=== PATIENT | female | born 1990 | race Caucasian/White ===

== ENCOUNTER 2020-09-29 14:26 | Inpatient (IN) ==
[2020-10-11] MEDS ORDERED: BETADINE SOLN ONE ×2 (06:38→16:08)
[2020-10-11] MEDS ORDERED: D5 1/2 NS 1000 ML 1,000 ML IV ONE (06:38)
[2020-10-11] MEDS ORDERED: PITOCIN ONE (06:38)
[2020-10-11] MEDS ORDERED: D5 1/2 NS 1L W PITOCIN 20 UNITS/L 20 UNITS/1,000 ML BAG IV ONE ×2 (06:39→07:11)
[2020-10-11] MEDS ORDERED: D5LR 1L W PITOCIN 10 UNITS/L 10 UNITS/1,000 ML BAG IV ONE ×2 (06:39→07:11)
--- NOTE | 2020-10-11 07:07 | DR.OB ---
OB Quick Note - Assessment/Plan Assessment/Plan: L&D 10/11/20 at 7:00am S-No complaint. O-Afebrile,VSS NVO=[id number] with good LTV, +accel, no decel CTX=q 2-3 min., mild by palpation CVX=2cm/50%/-1/VTX AROM with clear fluid. IUPC and FSE placed. A-IUP at 40 4/7 weeks for induction P-Begin pitocin induction Anticipate
[2020-10-11] MEDS ORDERED: D5LR 1L W PITOCIN 10 UNITS/L 10 UNITS/1,000 ML BAG IV PRN (07:39)
[2020-10-11] MEDS ORDERED: D5 1/2 NS 1000 ML 1,000 ML IV SCH (07:39)
[2020-10-11] MEDS ORDERED: PITOCIN IVP ONE (07:39)
[2020-10-11] MEDS ORDERED: NUBAIN INJ 200 MG VIAL MULTIDOSE IVP PRN (07:39)
[2020-10-11] MEDS ORDERED: REGLAN INJ 10 MG VIAL IVP PRN (07:39)
[2020-10-11] MEDS ORDERED: MORPHINE SULFATE INJ 2 MG INJ IVP PRN (07:39)
[2020-10-11] MEDS ORDERED: PHENERGAN INJ 25 MG IM PRN ×2 (07:39→13:35)
[2020-10-11] MEDS ORDERED: STADOL INJ IVP PRN (07:43)
[2020-10-11] MEDS ORDERED: STADOL INJ ONE (09:35)
[2020-10-11] MEDS ORDERED: FENTANYL INJ 100 mcg ONE ×2 (09:43→09:44)
[2020-10-11] MEDS ORDERED: NAROPIN EPIDURAL 0.2% 100 ML ONE (09:44)
[2020-10-11] MEDS ORDERED: LR 1000 ML IV 1,000 ML IV ONE (09:44)
--- NOTE | 2020-10-11 12:02 | DR.OB ---
OB Quick Note - Assessment/Plan Assessment/Plan: L&D 10/11/20 at 11:55am Pitocin=6mu/min. S-No complaint. s/p epidural. O-Afebrile,VSS ILP=621 with good LTV, +accel, no decel. CTX=q 1 1/2 to 2 min., about 55-65mmHg CVX=8cm/100%/0 A-IUP at 40 4/7 weeks for induction P-Cont. pitocin induction Anticipate
--- NOTE | 2020-10-11 13:35 | DR.OB ---
OB Quick Note - Assessment/Plan Assessment/Plan: Delivery Note [employer] 10/11/20 at 1:16pm Patient complete and pushing. Head delivered over intact perineum. No nuchal cord. Nose and mouth bulb suctioned. Body delivered over intact perineum. Cord clamped x 2 and cut. handed to attendant. Cord sent for gases. Late meconium noted. Placenta delivered spontaneously / intact / 3 vessel cord. No CVX tears noted. A small midline second degree tear noted and repaired with 0-vicryl in usual fashion. Viable female infant, VTX/OA, wt=8'10" and 9/9, stable to NBN. Mother stable to RR. BLH=[id number].
[2020-10-11] MEDS: D5 1/2 NS 1000 ML 1,000 ML with PITOCIN 20 UNITS IV SCH ×4 (14:26→23:00)
[2020-10-11] MEDS ORDERED: ADACEL or BOOSTRIX TDaP VACCINE IM ONE (14:39)
[2020-10-11] MEDS ORDERED: AMBIEN PO PRN (14:39)
[2020-10-11] MEDS ORDERED: DERMOPLAST PAIN RELIEF SPRAY TOP PRN (14:39)
[2020-10-11] MEDS ORDERED: MILK OF MAGNESIA PO PRN (14:39)
[2020-10-11] MEDS: MOTRIN TAB 800 MG PO PRN ×2 (15:56→23:58)
[2020-10-11] MEDS ORDERED: BETADINE SOLN TOP ONE (16:06)
[2020-10-12 05:56] LABS: HEMATOCRIT 31.6 % (36.0-47.0); HEMOGLOBIN 10.7 g/dL (12.0-16.0)
[2020-10-12] MEDS: D5 1/2 NS 1000 ML 1,000 ML with PITOCIN 20 UNITS IV SCH ×2 (07:18)
[2020-10-12] MEDS: PRENATAL PLUS PO SCH (08:29)
[2020-10-12] MEDS: MOTRIN TAB 800 MG PO PRN (18:10)
[2020-10-13 08:15] VITALS: BP 127/80
[2020-10-13] MEDS: PRENATAL PLUS PO SCH (08:30)
[2020-10-13] MEDS ORDERED: ADACEL or BOOSTRIX TDaP VACCINE IM ONE (10:00)
== END 2020-10-13 11:55 | disposition home or self-care (01) | DRG 807 ==
LOC: LD 10-11 06:24 → MED/SURG 10-11 15:21
PROVIDERS: ADMIT Specialist; ATTEND Specialist
DX: Z3A.40 40 weeks gestation of pregnancy; O70.1 Second degree perineal laceration during delivery; O26.893 Other specified pregnancy related conditions, third trimester; Z23 Encounter for immunization; Z37.0 Single live birth

== ENCOUNTER 2022-11-03 02:17 | Inpatient (IN) ==
[2022-11-03 02:49] VITALS: BMI 32.8
[2022-11-03 02:53] LABS: AMNISURE ROM TEST THERE IS A RUPTURE (NO RUPTURE)
[2022-11-03] MEDS ORDERED: DIPRIVAN VIAL 20 ML ONE ×2 (03:07→04:58)
[2022-11-03] MEDS ORDERED: BRIDION ONE (03:07)
[2022-11-03] MEDS ORDERED: ZOFRAN INJ 4 MG VIAL ONE (03:07)
[2022-11-03] MEDS ORDERED: REGLAN INJ 10 MG VIAL ONE (03:07)
[2022-11-03] MEDS ORDERED: VERSED ONE (03:07)
[2022-11-03] MEDS ORDERED: ZEMURON 100 MG VIAL ONE (03:07)
[2022-11-03] MEDS ORDERED: PEPCID 20 MG VIAL ONE (03:07)
[2022-11-03] MEDS ORDERED: FENTANYL VIAL INJ 250 mcg ONE (03:08)
[2022-11-03] MEDS ORDERED: PITOCIN ONE (03:09)
[2022-11-03] MEDS ORDERED: ANCEF VIAL 1 GRAM IVP ONE (03:17)
[2022-11-03] MEDS ORDERED: LR 1,000 ML IV 1,000 ML IV ONE ×3 (03:17→04:19)
[2022-11-03] MEDS ORDERED: D5 1/2 NS 1,000 mL + PITOCIN 20 UNITS/L IV 20 UNITS/1,000 ML BAG IV ONE (03:22)
[2022-11-03] MEDS ORDERED: DILAUDID INJ ONE (03:23)
[2022-11-03] MEDS ORDERED: NS 100 ML IV 100 ML ONE (03:26)
[2022-11-03] MEDS ORDERED: ANCEF VIAL 1 GRAM ONE (03:26)
[2022-11-03] MEDS ORDERED: MARCAINE SPINAL ONE (03:30)
[2022-11-03] MEDS ORDERED: EPHEDRINE SULFATE INJ ONE (03:31)
[2022-11-03] MEDS ORDERED: ZOFRAN INJ 4 MG VIAL IVP PRN ×2 (05:22→06:01)
[2022-11-03] MEDS ORDERED: BARHEMSYS INJ IVP PRN (05:22)
[2022-11-03] MEDS ORDERED: BENADRYL INJ 50 MG VIAL IVP PRN ×2 (05:22→06:01)
[2022-11-03] MEDS ORDERED: REGLAN INJ 10 MG VIAL IVP PRN ×2 (05:22→06:01)
[2022-11-03] MEDS ORDERED: D5 1/2 NS 1,000 ML 1,000 ML with PITOCIN 20 UNITS IV SCH ×2 (06:01)
[2022-11-03] MEDS ORDERED: NARCAN INJ IVP PRN (06:01)
[2022-11-03] MEDS ORDERED: MYLICON TAB 80 MG CHEW PO PRN (06:01)
[2022-11-03] MEDS ORDERED: ADACEL or BOOSTRIX TDaP VACCINE IM ONE (06:01)
[2022-11-03] MEDS ORDERED: PERCOCET TAB 5/325 MG PO PRN (06:01)
[2022-11-03] MEDS: PRENATAL PLUS PO SCH (08:56)
[2022-11-03] MEDS: TORADOL 30 MG VIAL IVP PRN (16:30)
[2022-11-04 05:17] LABS: HEMATOCRIT 27.1 % (36.0-47.0)
[2022-11-04 05:39] LABS: HEMOGLOBIN 9.3 g/dL (12.0-16.0)
[2022-11-04] MEDS: TORADOL 30 MG VIAL IVP PRN (07:50)
[2022-11-04] MEDS ORDERED: MOTRIN TAB 800 MG PO PRN (08:19)
[2022-11-04] MEDS: COLACE CAP 100 MG PO SCH ×2 (09:55→20:02)
[2022-11-04] MEDS: PRENATAL PLUS PO SCH (09:55)
[2022-11-04] MEDS: PERCOCET TAB 5/325 MG PO PRN (14:45)
[2022-11-04] MEDS: BACTROBAN TOPICAL OINT TOP SCH ×2 (14:53→21:03)
[2022-11-05] MEDS: PERCOCET TAB 5/325 MG PO PRN ×2 (02:36→07:42)
[2022-11-05] MEDS: BACTROBAN TOPICAL OINT TOP SCH (05:58)
[2022-11-05 08:01] VITALS: BP 139/66; PULSE 78; RESP 18; TEMP 98.4; O2SAT 99
[2022-11-05] MEDS: PRENATAL PLUS PO SCH (08:44)
[2022-11-05] MEDS: COLACE CAP 100 MG PO SCH (08:44)
== END 2022-11-05 12:00 | disposition home or self-care (01) | DRG 788 ==
LOC: ER 02:17 → LD 02:59 → MED/SURG 06:00
PROVIDERS: ADMIT Specialist; ATTEND Specialist
DX: Z01.812 Encounter for preprocedural laboratory examination; O24.410 Gestational diabetes mellitus in pregnancy, diet controlled; Z3A.38 38 weeks gestation of pregnancy; O32.1XX0 Maternal care for breech presentation, not applicable or unspecified; Z37.0 Single live birth